=== PATIENT | female | born 2000 | race African-American/Black ===

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

== ENCOUNTER 2022-06-01 18:25 | Observation (INO) | payer OTHER, SELFPAY ==
[2022-06-01] VITALS (8 sets, daily range): BP systolic 106; BP diastolic 66; PULSE 72–95; O2SAT 97–100; BMI 25.0
--- NOTE | 2022-06-01 19:29 | OBADM ---
This patient, Janeth Quigley, admitted to the OB room [facility] for observation. Patient/family oriented to hospital policies and general routines including ID bracelet, bed and alarms, visiting hours, pain management, procedures, bathroom and other care routines, personal items, smoking policy, room service/diet, and visiting hours. Patient/Family are encouraged to report perceived risks to care and to ask questions if they do not understand what they are told or what they should do.
[2022-06-01 19:51] LABS: Appearance Urine Clear (Clear); Bilirubin Urine Negative (Negative); Color Urine Yellow (Yellow); Glucose Urine UA Negative (Negative); Ketones Urine 4+ mg/dL (Negative); Leukocyte Esterase Ur 2+ LEU/UL (Negative); Nitrate Urine Negative (Negative); Protein Urine 1+ mg/dL (Negative); Specific Grav Ur >= 1.030 (1.001-1.035); Urobilinogen Urine 0.2 mg/dL (<2.0)
[2022-06-01 19:57] LABS: Add Urine Microscopic? YES; Blood Urine Trace-Intact (Negative)
[2022-06-01 20:05] LABS: Bacteria Urine Trace /hpf; Mucus Urine Moderate /lpf; Squamous Epithelial Cell Urine Moderate /hpf (Few); WBC Urine 51-75 /hpf
--- NOTE | 2022-06-01 22:33 | P.PNOB_ITS ---
OB - Triage/Final Diagnosis Visit Information Date of evaluation: 06/01/22 Reason for evaluation: threatened labor Comments/Additional reasons for admission: I have assessed the risk for this patient, Janeth Quigley, and determined that she would benefit from observation care. Evaluation Laboratory results: Laboratory Tests 06/01/22 19:21 Urine Color Yellow Urine Appearance Clear Urine pH 6.0 Ur Specific [place] >= 1.030 Urine Protein 1+ H Urine Glucose (UA) Negative Urine Ketones 4+ H Ur Blood (Man) Trace-intact Urine Nitrate Negative Urine Bilirubin Negative Urine Urobilinogen 0.2 Leukocyte Esterase Rfl 2+ H Urine RBC 6-10 H Urine WBC 51-75 H Ur Squamous Epith Cells Moderate H Urine Bacteria Trace Urine Mucus Moderate H Vital signs: Vital Signs - 24 hr 06/01/22 18:44 06/01/22 18:49 06/01/22 18:54 Pulse Rate Blood Pressure Pulse Oximetry 98 97 98 06/01/22 18:55 06/01/22 18:59 06/01/22 19:04 Pulse Rate 78 Blood Pressure 106/66 Pulse Oximetry 99 99 06/01/22 19:09 06/01/22 19:14 Pulse Rate Blood Pressure Pulse Oximetry 100 100
== END 2022-06-01 20:40 | disposition home or self-care (01) ==
PROVIDERS: Admitting Provider Obstetrics & Gynecology; Visit Provider Obstetrics & Gynecology
DX: O47.02 False labor before 37 completed weeks of gestation, second trimester (principal); R10.9 Unspecified abdominal pain; Z3A.26 26 weeks gestation of pregnancy
CPT/HCPCS: 81001; 87086; 87088; G0378; G0379